=== PATIENT | female | born 1990 | race Caucasian/White ===

== ENCOUNTER 2024-06-21 14:10 | Outpatient (REF) | payer OTHER, SELFPAY ==
[2024-06-21 14:47] LABS: Amphetamine Screen Urine Not Detected (Not Detect); Barbiturates, Urine Not Detected (Not Detect); Benzodiazepines Screen Urine Not Detected (Not Detect); Buprenorphine Scr Positive (Not Detect); Cannabinoid Screen Urine POSITIVE (Not Detect); Cocaine Screen Urine Not Detected (Not Detect); Fentanyl, urine Not Detected (Not Detect); Methadone Screen, Urine Not Detected (Not Detect); Opiate Screen Urine Not Detected (Not Detect); Oxycodone Screen Urine Not Detected (Not Detect); Phencyclidine Screen Urine Not Detected (Not Detect)
--- OUTSIDE RECORDS SUMMARY | 2024-06-21 15:51 | XMS_ITS | Clinical Summary ---
Author Organization [facility] Address [address] [facility] [place] Phone Care Team Providers Care Customer Success Representative Name Role Phone Ulices Morel Primary Care Provider [phone] Surgical History Surgery Date Site/Laterality Comments WISDOM TOOTH EXTRACTION PROCEDURE: HISTORICAL WISDOM TEETH EXTRACTION VAGINOSCOPY 02/16/2012 PROCEDURE: CO COLPOSCOPY CERVIX BX CERVIX & ENDOCRV CURRETAGE SECTION PROCEDURE: HISTORICAL DELIVERY Medical History Medical History Date Comments Unspecified asthma(493.90) DX:Un specified asthma(493.90); COMMENT: smoking induced Anxiety state, unspecified DX:An xiety state, unspecified; COMMENT: in counseling, well controlled Depression DX:Depression; C OMMENT: in counseling, well controlled Migraines DX:Migraines Hyperthyroidism 12/06/2013 DX:Hyperthyroidi sm OCD (obsessive compulsive disorder) 2021 DX:OCD (obsessive compulsive disorder) History of opioid abuse ([facility]/HCC) 09/10/2021 DX:History of opioid abuse ([facility]); COMMENT: Currently on 12mg suboxone; goes to [facility] in [place]. Family History Medical History Relation Name Comments No Known Problems Brother Migraines Father Hypertension Mother Other: anxiety depression bipolar Mother Other: skin cancer Paternal Grandfather Breast cancer Neg Hx Colon cancer Neg Hx Ovarian cancer Neg Hx Pancreatic cancer Neg Hx Prostate cancer Neg Hx Uterine cancer Neg Hx Relation Name Status Comments Brother Alive x1 half Father Alive healthy Maternal Grandfather Maternal Grandmother Mother Alive htn, Paternal Grandfather Paternal Grandmother Alive Social History Tobacco Use Types Packs/Day Years Used Date Smoking Tobacco: Every Day Smokeless Tobacco: Never Alcohol Use Standard Drinks/Week Comments Not Currently 0 (1 standard drink = 0.6 oz pur e alcohol) Comments Unknown Sex and Gender Information Value Date Recorded Sex Assigned at Not on file Legal Sex Female 10:56 AM EST Gender Identity Not on file Sexual Orientation Not on file Obstetrics History Last Filed Vital Signs Vital Sign Reading Time Taken Comments Blood Pressure 111/55 04/29/2022 1:33 PM EST Pulse 90 04/29/2022 1:33 PM EST Temperature - - Respiratory Rate - - Oxygen Saturation - - Inhaled Oxygen Concentration - - Weight 57 kg (125 lb 9.6 oz) 04/29/2022 1:33 PM EST Height - - Body Mass Index - - Plan of Treatment Health Maintenance Due Date Last Done Comments Hepatitis B Vaccines (1 of 3 - 19+ 3-dose series) 2008 Pneumococcal Vaccine: Pediatrics (0 to 5 Years) and At-Risk Patients (6 to 64 Years) (1 of 2 - PCV) 2008 Depression Screening 03/27/2022 HIV Screening 03/27/2022 Hepatitis C Screening 03/27/2022 Social Influencers of Health Screening 03/27/2022 COVID-19 Vaccine (1 - 2023-2 5 season) 2023 Influenza Vaccine (#1) 2023 02/15/2022 Cervical Cancer Screening: P ap Smear 09/23/2024 09/23/2021, 10/25/2017 DTaP,Tdap,and Td Vaccines (3 - Td or Tdap) 01/11/2032 01/10/2022, 10/01/2009 HPV Vaccines Completed 09/19/2012, 04/25/2012, 02/24/2012 HIB Vaccines Aged Out No longer eligi ble based on patient's age to complete this topic Hepatitis A Vaccines Aged Out No long er eligible based on patient's age to complete this topic IPV Vaccines Aged Out No longer eligi ble based on patient's age to complete this topic MMR Vaccines Aged Out No longer eligi ble based on patient's age to complete this topic Meningococcal ACWY Vaccine Aged Out N o longer eligible based on patient's age to complete this topic Meningococcal B Vacine Aged Out No lo nger eligible based on patient's age to complete this topic RSV Immunization Patients Under 20 months Aged Out No longer eligible b ased on patient's age to complete this topic Varicella Vaccines Aged Out No longer eligible based on patient's age to complete this topic Procedures Procedure Name Priority Date/Time Associated Diagnosis Comments PAP SMEAR Routine 09/23/2021 from Last 3 Months or Most Recently Relevant to Health Maintenance Results * Pap smear (09/23/2021) 09/23/2021 Narrative HISTORICAL TESTING LAB RESULTING AGENCY - 10/04/2021 7:56 AM EDT [id number] THINPREP PAP, IMAGED: NEGATIVE FOR SQUAMOUS INTRAEPITHELIAL LESION AND MALIGNANCY . ZAINAB HOUGH(ASCP) (CASE ELECTRONICALLY SIGNED 10 02 2021) RESULT OF APTIMA HIGH RISK HPV ASSAY: HIGH RISK HPV: ??NEGATIVE (SEROTYPES 16,18,31,33,35,39,45,51,52,56,58,59,66,68) COMPLETED ON 2021-09-28 ADEQUACY: SATISFACTORY ENDOCERVICAL/TRANSFORMATION ZONE COMPONENT PRESENT. SOURCE: THINPREP PAP HPV ANY DX: ??REFLEX 16 AND 18, CERVICAL, IMAGED CLINICAL INFORMATION: HPV ANY DIAGNOSIS. , PAP HX NEGATIVE, LMP 06/25/21, [Z12.4] us Vale Escobedo MD LAB CYTOLOGY ORDERABLES Fin al Result HISTORICAL TESTING LAB RESULTING AGENCY from Last 3 Months or Most Recently Relevant to Health Maintenance Care Teams Customer Success Representative Relationship Specialty Start Date End Date Ulices Morel [address] [place] [phone] [facility] - General 08/11/21
--- OUTSIDE RECORDS SUMMARY | 2024-06-21 15:51 | XMS_ITS | Encounter Summary ---
Author Organization [facility] Address [address] [place] [phone] Phone Care Team Providers Care Pesticide Control Inspector Name Role Phone Marie Rodriguez MD Primary Care Provider Encounter Details Date Type Department Care Team (Late st Contact Info) Description 12/01/2016 Conversion Encounter [facility] - [address] [address] Social History Tobacco Use Types Packs/Day Years Used Date Smoking Tobacco: Never Assessed Comments Unknown Sex and Gender Information Value Date Recorded Sex Assigned at Not on file Legal Sex Female 4:25 PM EDT Gender Identity Not on file Sexual Orientation Not on file documented as of this encounter Plan of Treatment Not on file documented as of this encounter Visit Diagnoses Not on filedocumented in this encounter Care Teams Pesticide Control Inspector Relationship Specialty Start Date End Date Marie Rodriguez MD [address] [place] [id number] PCP - General 11/25/16 06/02/22 documented as of this encounter
== END 2024-06-21 14:11 | disposition home or self-care (01) ==
LOC: HO.LNP 14:10
PROVIDERS: Visit Provider Psychiatry & Neurology Psychiatry
DX: F11.20 Opioid dependence, uncomplicated (principal); F12.20 Cannabis dependence, uncomplicated; F33.2 Major depressive disorder, recurrent severe without psychotic features
CPT/HCPCS: 80307

== ENCOUNTER 2024-06-27 10:30 | Outpatient (RCR) | payer OTHER, SELFPAY ==
--- NOTE | 2024-06-13 09:15 | HO.PHP ---
PHP staff member reached out to Kelsey due to her not showing up to the program today. Kelsey voiced that she had called and left a voicemail stating that her whole household is sick including her and she won't be in attendance to program today. Kelsey reported no concerns around SI, plan or intent. Kelsey noted she will be in attendance to program tomorrow.
[2024-06-14 09:34] VITALS: BMI 24.4
[2024-06-14 09:35] VITALS: BP 117/68; PULSE 85; TEMP 37.4
--- NOTE | 2024-06-14 12:53 | PC.ADMIT ---
Patient is a 33 year old partnered female who was referred to [facility] by her therapist d/t severe depression, anxiety, and substance use. 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 She reports they called an ambulance and was taken to the ER to be evaluated. She stated she did not need to be Narcaned and has no history of being Narcaned. Patient lives with her partner who is the father of her 2 year old son. Patient has a long history of struggling with opiate addiction. Reports she has never used IV, reports sniffing it. Stated she started using when she was younger using Percocets, then sniffing heroin, and for the past 10 years sniffing Fentanyl. Stated she has not use any type of opiate in 2 months with the exception of using a small amount of fentanyl this past Monday. Patient reports longest period of sobriety was when she was with her now two year old son. Educated patient on withdrawal management however she is not interested in going into withdrawal management at this time as she reports being sober from opiates for 2 months with the exception of last Monday. She is on MAT at [facility] with Suboxone. She is interested in a job coaching and we filled out paperwork from [employer] to be submitted for a job coaching. She was encouraged to attend NA groups for more support. Patient wants to work on feelings of depression and anxiety while at [facility] along with not using substances. She does have a history of withdrawal management in 2016. Denied any other type of treatment. Feels she hit rock bottom when she got fired from her job and accidentally overdosed in April 2024. Patient is alert and oriented x4. She is calm and cooperative. She presented with anxious mood and affect. Denied SI, no HI. She was given a copy of her safety plan if needed. Medications reconciled with patient and patient's pharmacy. Medication education provided.
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
--- NOTE | 2024-06-17 17:21 | P.PNPSP_ITS ---
Subjective Subjective Date of Service: 06/17/24 Reason For Visit: depression,anxiety,OCD,ERICA Interim History: Patient presents as calmer, less depressed, is tolerating medication changes switching off clonidine onto guanfacine which appears to be better tolerated denies any lightheadedness or dizziness anxiety comes and goes still having some periods of feeling more highly anxious particularly around tasks and organization, has tendency to procrastination. She also complains about being easily overstimulated, low frustration tolerance, notices feeling stressed when my son gets too loud although overall is less reactive and irritable, more like just flashes of irritability but feels she is in better control. She feels that anxiety is the biggest issue mostly in the context of executive dysfunction. She has been on Wellbutrin 300 for a long time is well-tolerated but is not able to appreciate how much it helps with cognition and motivation. We discussed options including titrating Wellbutrin, versus a trial of Strattera - which patient preferred. Will continue on Abilify split dose 2.5 b.i.d. she also continues on mirtazapine 22.5 sleep is intact some delay onset appetite is intact. She denies any alcohol or substance use she denies any hopelessness or SI. Medication Compliance: Yes Side effects from medications: No Attending Groups: Yes Review of Systems Acute medical concerns: No Diagnostics Vital Signs (24Hr): BMI result Body Mass Index 24.4 Assessment & Plan Assessment & Plan (1) Opioid use disorder, severe, on maintenance therapy: Status: Acute Code(s): F11.20 - Opioid dependence, uncomplicated (2) ADHD: Status: Acute Code(s): F90.9 - Attention-deficit hyperactivity disorder, unspecified type (3) Other obsessive-compulsive disorder: Status: Acute Code(s): F42.8 - Other obsessive-compulsive disorder (4) MDD (major depressive disorder): Status: Acute Code(s): F32.9 - Major depressive disorder, single episode, unspecified Plan continue PHP start Strattera 25 mg qd for 3-5 days (incr to 50 mg qd as tolerated) continue Abilify 5 mg (split 2.5 mg BID) continue guanfacine ER 1 mg qd (consider incr to 2 mg/d as qd or split bid) continue Wellbutrin XL 300 mg qam continue mirtazapine 22.5 mg qhs continue other regular medications?- Suboxone 24-6 mg/d (split 8-2 TID) discontinued: clonidine Routine lab work ordered as indicated EKG, routine for baseline QTc for medication considerations as indicated UDS as indicated VS (06/14/24) abrefile, BP 117/68;?85 bpm (on clonidine) Continue to monitor as per protocol Patient educated on: diagnosis, medication risk/benefits and substance abuse Informed Consent: understands Reason for contiued partial hosp. stay Substantial Risk for: inability to function and med/psych decompensation Certification I certify that partial hospital treatment is medically necessary due to the symptoms and problems resulting from the patient's mental illness and the failure to treat the patient at the partial hospital level of care would likely result in the patient requiring inpatient psychiatric care which could not be prevented at a less intensive level of care. Total time managing care of this patient today __30__ minutes. Discharge Plan Discharge Attending provider: Kasandra Alexander Additional Instructions: 0:00 AM - 11:00 AM [facility] Adult Comprehensive Assessment?IN PERSON? Prog: Outpatient Site:[address] [place] [address] Staff: GLORIA WARD 1:00 AM - 12:00 PM Psychiatric E/M New - Telehealth v2 BY PHONE? Prog: Psychiatric Services Site:[address] [place] [address] Staff: ANNE MARIE MERCADO Medications: New aripiprazole 5 mg tablet 5 mg PO BEDTIME Qty: 14 0RF guanfacine 1 mg tablet extended release 24 hr 1 mg PO DAILY Qty: 14 0RF atomoxetine [Strattera] 25 mg capsule See Rx Instructions .ROUTE .COMPLEX Qty: 30 0RF Rx Instructions: start one capsule po daily for 3 days, then increase to 2 capsules po daily Continued bupropion HCl 300 mg tablet extended release 24 hr 300 mg PO DAILY buprenorphine-naloxone 8-2 mg film 3 film sublingual DAILY Changed clonidine HCl 0.1 mg tablet 0.1 mg PO QPM PRN (Reason: anxiety) Qty: 30 0RF Rx Instructions: to be taken in evening after 5pm until bedtime mirtazapine 45 mg tablet 22.5 mg PO BEDTIME Qty: 15 0RF Patient Comments: Patient stated she takes during the day. Patient medication education provided. Patient to take as prescribed at HS. No Action aripiprazole 2 mg tablet 2 mg PO BEDTIME naloxone 4 mg/actuation spray,non-aerosol 1 spray intranasal NEEDED Patient Comments: Patient reports she has Narcan if needed. She also reports her knows how to use Narcan if needed. Rx Instructions: ADMINISTER 1 SPRAY INTO 1 NOSTRIL NEEDED CALL 911. REPEAT AFTER 2-3 MIN IF NO OR MINIMAL RESPONSE Benadryl Allergy 50 mg Tablet 50 mg PO BEDTIME PRN (Reason: Insomnia) Rx Instructions: Patient uses OTC. melatonin 10 mg Tablet 10 mg PO BEDTIME PRN (Reason: Insomnia) Rx Instructions: Patient uses OTC Stand Alone Forms: Patient Portal Discharge page Print Language: Portuguese
--- NOTE | 2024-06-18 15:15 | HO.PHP ---
Referral to [facility] for Med Management and Livestock Nutrition Territory Manager was faxed to [facility] today, 06/18/24.
--- NOTE | 2024-06-19 07:52 | HO.PHP ---
[facility] Provider intake appt and 1st telehealth visit through [facility] are as follows: 0:00 AM - 11:00 AM [facility] Adult Comprehensive Assessment?IN PERSON? Prog: Outpatient Site:[address] [place] [address] Staff: GLORIA WARD 1:00 AM - 12:00 PM Psychiatric E/M New - Telehealth v2 BY PHONE? Prog: Psychiatric Services Site:[address] [place] [address] Staff: ANNE MARIE MERCADO
--- NOTE | 2024-06-20 17:02 | HO.PHP ---
Client's case has been opened and reviewed in team.
--- NOTE | 2024-06-27 22:51 | HO.PHPPROGNO ---
Subjective Subjective Date of Service: 06/27/24 Reason For Visit: depression,anxiety,OCD,ERICA Interim History: Patient seen for follow-up, anticipating discharge at the end of program today.? Meds seem to be working really well Says she feels so much better and says she has been able to start to concentrate and get some work done. She has been taking 50 mg (25 x2) of Strattera. She is agreeable to moving to 60 mg and taking this with guanfacine ER 1 mg in the AM. Reports no acute issues or concerns. Medication compliant, medications well-tolerated. Denies any adverse effects.?Reprots mental clarity has moved from a 2 to an 7 or 8 out of 10. Mood is stable.? Denies any hopelessness or SI. Denies thoughts of harming self or others at this time. Denies any aggressive ideation or HI. Denies any paranoia or AH or VH. Sleep, appetite, energy stable. Mental Status Exam Mental Status Exam Narrative: Alert, oriented, in no acute distress. Calm, cooperative. Mood stable, affect appropriate. Speech normal. Thought process linear, coherent, more goal-directed. Thought content related to stressors, future-oriented, denies any helplessness, hopelessness or SI.? No aggressive ideation or HI. No paranoia or delusional content elicited. No evidence of psychosis. Insight and judgment fair-good. Diagnostics Vital Signs (24Hr): BMI result Body Mass Index 24.4 Assessment & Plan Assessment & Plan (1) Opioid use disorder, severe, on maintenance therapy: Status: Acute Code(s): F11.20 - Opioid dependence, uncomplicated (2) ADHD: Status: Acute Code(s): F90.9 - Attention-deficit hyperactivity disorder, unspecified type (3) Other obsessive-compulsive disorder: Status: Acute Code(s): F42.8 - Other obsessive-compulsive disorder (4) MDD (major depressive disorder): Status: Acute Code(s): F32.9 - Major depressive disorder, single episode, unspecified Plan Discharge from [facility] Continue regular medications continue Strattera at 60 mg qd continue Abilify 5 mg (split 2.5 mg BID) continue guanfacine ER 1 mg qd (consider incr to 2 mg/d as qd or split bid) continue Wellbutrin XL 300 mg qam continue mirtazapine 22.5 mg qhs continue other regular medications?- Suboxone 24-6 mg/d (split 8-2 TID) discontinued: clonidine Refills sent to pharmacy Will defer further medication management to outpatient provider *Safety plan reviewed *Discharge diagnoses, treatment course, discharge plan have been reviewed with patient (including medication regime, medication management, potential side effects) as well as treatment rationale were also revisited *Discharge paperwork signed and given to patient, copy sent for scanning to chart Patient educated on: diagnosis, medication risk/benefits and substance abuse Informed Consent: understands Reason for contiued partial hosp. stay Substantial Risk for: stable for discharge Certification I certify that partial hospital treatment is medically necessary due to the symptoms and problems resulting from the patient's mental illness and the failure to treat the patient at the partial hospital level of care would likely result in the patient requiring inpatient psychiatric care which could not be prevented at a less intensive level of care. Total time managing care of this patient today __30__ minutes. Discharge Plan Discharge Attending provider: Kasandra Alexander Additional Instructions: 0:00 AM - 11:00 AM [facility] Adult Comprehensive Assessment?IN PERSON? Prog: Outpatient Site:[address] [place] [address] Staff: GLORIA WARD 1:00 AM - 12:00 PM Psychiatric E/M New - Telehealth v2 BY PHONE? Prog: Psychiatric Services Site:[address] [place] [address] Staff: ANNE MARIE MERCADO PCP appointment with [facility]. [address], [address]. [facility]. Office # [phone]. Patient left her information with [facility] staff. She is awaiting a call back from central scheduling line for an appointment. Medications: New atomoxetine 60 mg capsule 60 mg PO QAM Qty: 30 0RF Continued bupropion HCl 300 mg tablet extended release 24 hr 300 mg PO DAILY buprenorphine-naloxone 8-2 mg film 3 film sublingual DAILY guanfacine 1 mg tablet extended release 24 hr 1 mg PO DAILY Qty: 30 0RF aripiprazole 5 mg tablet 5 mg PO BEDTIME Qty: 30 0RF Changed clonidine HCl 0.1 mg tablet 0.1 mg PO QPM PRN (Reason: anxiety) Qty: 30 0RF Rx Instructions: to be taken in evening after 5pm until bedtime mirtazapine 45 mg tablet 22.5 mg PO BEDTIME Qty: 15 0RF Patient Comments: Patient stated she takes during the day. Patient medication education provided. Patient to take as prescribed at HS. Discontinued aripiprazole 2 mg tablet 2 mg PO BEDTIME No Action naloxone 4 mg/actuation spray,non-aerosol 1 spray intranasal NEEDED Patient Comments: Patient reports she has Narcan if needed. She also reports her knows how to use Narcan if needed. Rx Instructions: ADMINISTER 1 SPRAY INTO 1 NOSTRIL NEEDED CALL 911. REPEAT AFTER 2-3 MIN IF NO OR MINIMAL RESPONSE Benadryl Allergy 50 mg Tablet 50 mg PO BEDTIME PRN (Reason: Insomnia) Rx Instructions: Patient uses OTC. melatonin 10 mg Tablet 10 mg PO BEDTIME PRN (Reason: Insomnia) Rx Instructions: Patient uses OTC Stand Alone Forms: Patient Portal Discharge page Patient Education: ADHD in Adults (DC), Depression (DC), Opioid Use Disorder (DC) Print Language: [place]
== END 2024-06-27 23:59 | disposition home or self-care (01) ==
LOC: HO.PHPA 10:30
PROVIDERS: Visit Provider Psychiatry & Neurology Psychiatry
DX: F11.20 Opioid dependence, uncomplicated (principal); F90.9 Attention-deficit hyperactivity disorder, unspecified type; F42.8 Other obsessive-compulsive disorder; F32.9 Major depressive disorder, single episode, unspecified; Z79.899 Other long term (current) drug therapy
CPT/HCPCS: 90791; 90853